=== PATIENT | female | born 1985 | race Caucasian/White ===

== ENCOUNTER → 2017-11-15 | Outpatient (CLI) | payer OTHER, MEDICARE, MEDICAID ==
[~2017-11-15] MED LIST: AZIT500T47 PO; BUDE1AMP2 IH; DOXY150T6 PO; FELB600T2 PO; FLUT16SP20 NS; METH27TA8 PO; MON10 PO; PROP40TA45 PO
== END ==
LOC: LAB 16:07
PROVIDERS: ATTEND Dermatology
DX: L50.1 Idiopathic urticaria (principal)
CPT/HCPCS: 36415; 82040; 82247; 82310; 82374; 82435; 82565; 82947; 84075; 84132; 84155; 84295; 84450; 84460; 84520